=== PATIENT | female | born 1955 | race Caucasian/White ===

== ENCOUNTER → 2023-07-05 | Outpatient (CLI) | payer OTHER ==
[~2023-07-05] MED LIST: ESTR0.5T4 PO; LEVO100T12 PO
== END | disposition home or self-care (01) ==
LOC: RAH 14:34
PROVIDERS: ATTEND Nurse Practitioner Adult Health
DX: Z13.6 Encounter for screening for cardiovascular disorders (principal)
CPT/HCPCS: 75571

== ENCOUNTER → 2024-04-22 | Outpatient (CLI) | payer MEDICARE ==
--- NOTE | 2024-04-22 16:40 | HMCIMG ---
KNEE 3VWS LT HISTORY: Pain COMPARISON: None TECHNIQUE: 3 images of left knee were obtained. FINDINGS: There is no acute displaced fracture or dislocation. Degenerative changes are seen. IMPRESSION: 1. Findings as described above.
--- NOTE | 2024-04-22 16:41 | HMCIMG ---
KNEE 3VWS RT HISTORY: Right knee pain COMPARISON: None TECHNIQUE: 3 images of right knee were obtained. FINDINGS: There is no acute displaced fracture or dislocation. Degenerative changes are seen. IMPRESSION: 1. Findings as described above.
--- NOTE | 2024-04-22 16:41 | HMCIMG ---
HIP UNILAT 2-3VW LEFT HISTORY: Left hip pain COMPARISON: None TECHNIQUE: 3 images of left hip were obtained. FINDINGS: There is no acute displaced fracture or dislocation. Joint space narrowing is seen. Degenerative changes are seen. IMPRESSION: 1. Findings as described above.
== END | disposition home or self-care (01) ==
LOC: RAH 10:40
PROVIDERS: ATTEND Nurse Practitioner Adult Health
DX: M16.12 Unilateral primary osteoarthritis, left hip (principal); M17.0 Bilateral primary osteoarthritis of knee; M25.561 Pain in right knee; M25.562 Pain in left knee
CPT/HCPCS: 73502; 73562

== ENCOUNTER 2024-06-12 05:47 | Day surgery (SDC) | payer MEDICARE ==
[2024-06-10 09:19] VITALS: BP 120/67; PULSE 75; RESP 18; TEMP 98.1
[2024-06-10 09:34] LABS: BASOPHILS # (AUTO) 0.04 K/uL (0.00-0.20); BASOPHILS % (AUTO) 1.2 % (0.0-5.0); EOSINOPHILS # (AUTO) 0.14 K/uL (0.00-0.70); EOSINOPHILS % (AUTO) 4.1 % (0.0-8.0); HEMATOCRIT 37.3 % (36-48); IMMATURE GRANULOCYTE ABSOLUTE 0.01 K/uL (0-1); LYMPHOCYTES # (AUTO) 1.2 K/uL (1.0-4.8); LYMPHOCYTES % (AUTO) 34.7 % (21.0-51.0); MEAN CORPUSCULAR HEMOGLOBIN 30.5 pg (27.0-33.0); MEAN CORPUSCULAR HGB CONC 32.4 g/dL (32.0-36.0); MONOCYTES # (AUTO) 0.3 K/uL (0.1-1.0); MONOCYTES % (AUTO) 7.3 % (3.0-13.0); NEUTROPHILS # (AUTO) 1.8 K/uL (1.8-7.7); NEUTROPHILS % (AUTO) 52.4 % (40.0-77.0); PLATELET COUNT (AUTO) 255 K/uL (130-400); RED BLOOD CELL COUNT(AUTO) 3.97 MIL/uL (4.00-5.50); RED CELL DISTRIBUTION WIDTH 13.4 % (11.0-15.5); WHITE BLOOD COUNT (AUTO) 3.4 K/uL (4.8-10.8)
[2024-06-10 09:47] LABS: CREATININE 0.7 mg/dL (0.5-1.0); POTASSIUM 4.4 mmol/L (3.5-5.1)
[2024-06-10 09:51] LABS: INR 0.97 (0.85-1.15); PROTHROMBIN TIME 10.3 SEC (9.6-11.6)
[2024-06-10 09:52] LABS: PARTIAL THROMBOPLASTIN TIME 21.4 SEC (26.3-35.5)
[~2024-06-12] VITALS: Ht 160 cm; Wt 63.9 kg
[2024-06-12] VITALS (10 sets, daily range): BP systolic 105–124; BP diastolic 51–70; PULSE 60–80; RESP 14–16; TEMP 97.2–97.5
[~2024-06-12 05:47] MED LIST changes: -ESTR0.5T4 PO; -LEVO100T12 PO; +LEVO75TA10 PO; +MELO-106 PO
[2024-06-12] MEDS ORDERED: proPOFol 10 MG/ML 20ML VIAL IV ONE (06:37)
[2024-06-12] MEDS ORDERED: MIDAZOLAM HCL 1 MG/ML 2ML VIAL ONE (06:37)
[2024-06-12] MEDS ORDERED: FENTanyl CITRate PF 50 MCG/1 ML 2ML VIAL ONE (06:38)
[2024-06-12] MEDS: ceFAZolin SODIUM 2 GM VIAL ONE (06:55)
[2024-06-12] MEDS: LACTATED RINGERS 1000ML 1,000 ML IV ONE (06:55)
[2024-06-12] MEDS ORDERED: BUPIvacaine/PF 0.5% 30ML VIAL ONE (07:07)
[2024-06-12] MEDS ORDERED: BUPIvacaine/PF 0.25% 30ML VIAL IJ ONE (07:07)
[2024-06-12] MEDS ORDERED: methylPREDNISolone aceTATE 40 MG/ML VIAL ONE (07:07)
[2024-06-12] MEDS: BUPIvacaine/PF 0.25% 30ML VIAL IJ ONE ×2 (08:08)
[2024-06-12] MEDS ORDERED: IOHEXOL 180 MG/ML 20 ML VIAL ONE (10:54)
--- NOTE | 2024-06-12 15:15 | HMCIMG ---
INTRAOPERATIVE FLUOROSCOPIC GUIDANCE UP TO 1 HOUR. IMPRESSION: Intraoperative fluoroscopic guidance was provided for left hip injection, which was performed by Dr. Ma. Total fluoroscopy time was 8.3 seconds, and administered dose, 1.23 mGy. A total of 4 spot images obtained. Please refer to the procedure note for further details.
--- NOTE | 2024-06-12 15:38 | OP ---
Operative Note: DATE OF PROCEDURE: 06/12/24 PREOPERATIVE DIAGNOSIS: Left hip osteoarthritis. POSTOPERATIVE DIAGNOSIS: Left hip osteoarthritis. PROCEDURE PERFORMED: Left hip intra-articular steroid injection with fluoroscopic guidance. SURGEON: Michelle Ma MD BAT CARRIER: None. ANESTHESIA: MAC . ANESTHESIA: MARTÍN Gill ESTIMATED BLOOD LOSS: None. COMPLICATIONS: None. DRAINS: None. SPECIMENS REMOVED: None. STATEMENT OF MEDICAL NECESSITY: The patient is a 69-year-old female who suffers from left hip osteoarthritis. After discussion of the risks, benefits and alternatives with the patient voluntarily agreed to undergo the aforementioned procedure. DESCRIPTION OF PROCEDURE: The patient was properly identified in the preoperative holding area. Surgical site marking verified. Surgery consent reviewed. She was then taken to the operating room and placed on the OR table in a supine position. After induction of anesthetic, all bony prominences were well padded. A surgical timeout was done verifying the correct surgery side, site, and location to be performed. The left hip was then prepped and draped in the usual sterile fashion. We then began our procedure using fluoroscopic guidance to localize the hip joint. I then used an 18-gauge spinal needle to access the hip joint and injected a cocktail with Depo-Medrol, Marcaine and omnipaque. Using a small amount of the injection, we verified placement of the needle in the joint with fluoroscopy. Once we saw the contrast lining the joint capsule, we then injected the remaining portion of the cocktail and we took fluoroscopy verifying again the injection was done in the right place. We then withdrew our needle and applied a Band-Aid to the injection site. The patient was then awakened from anesthesia and taken to the recovery room in stable condition. MICHELLE MA MD Jun 12, 2024 15:38
== END 2024-06-12 09:05 | disposition home or self-care (01) ==
LOC: DAH 05:47
PROVIDERS: ATTEND Student in an Organized Health Care Education/Training Program
DX: M16.12 Unilateral primary osteoarthritis, left hip (principal); M25.552 Pain in left hip; E03.9 Hypothyroidism, unspecified; E78.00 Pure hypercholesterolemia, unspecified; Z79.01 Long term (current) use of anticoagulants; Z82.49 Family history of ischemic heart disease and other diseases of the circulatory system; Z79.899 Other long term (current) drug therapy; Z98.890 Other specified postprocedural states
CPT/HCPCS: 80048; 85025; 85610; 85730; 36415; 20610; 77002; 73503; A4663; J7120; J3010; J0665 ×3; J2250; J2704; J1010 ×2; Q9965; J0690 ×2; A4215; A4223; A4222; A4221; J3490